=== PATIENT | female | born 1980 | race Caucasian/White ===

== ENCOUNTER 2018-09-16 09:07 | Observation (INO) | payer OTHER ==
[~2018-09-16] VITALS: Ht 162.6 cm; Wt 82.1 kg
--- NOTE | 2018-09-16 09:22 | NUR ---
PATIENT IMMEDIATELY TO ROOM 13 FOR BEDSIDE TRIAGE AND PHYSICIAN AT BEDSIDE FOR EVAL
[2018-09-16 09:55] LABS: HEMATOCRIT 43.6 % (37.0-47.0); HEMOGLOBIN 14.5 g/dl (12.0-16.0); IMMATURE GRANULOCYTES 0.3 % (0.0-5.0); MEAN CELL VOLUME 90.6 fL CALC (80.0-100.0); MEAN CORPUSCULAR HGB 30.1 pG CALC (26.0-32.0); MEAN CORPUSCULAR HGB CONC 33.3 g/L CALC (32.0-36.0); NEUT# 6.24 thou/uL (2.00-7.15); RED BLOOD COUNT 4.81 mill/uL (4.20-5.60); RED CELL DISTRI WIDTH 12.7 % (11.5-15.5)
[2018-09-16] MEDS ORDERED: SINGULAIR10 MG PO (10:02)
[2018-09-16] MEDS ORDERED: ALBUTEROL SUL0.083 % IN (10:04)
[2018-09-16] MEDS ORDERED: HYDROCHLOROT12.5 M1 PO (10:05)
[2018-09-16] MEDS ORDERED: TIZANIDINE HCL2 MG PO (10:06)
[2018-09-16] MEDS ORDERED: CYCLOBENZAPR10 MG PO (10:07)
[2018-09-16] MEDS ORDERED: TOPIRAMATE100 MG PO (10:08)
[2018-09-16] MEDS ORDERED: RANITIDINE150 M1 PO (10:08)
[2018-09-16] MEDS ORDERED: NORTRIPTYLIN25 MG PO (10:08)
[2018-09-16] MEDS ORDERED: AVIANE PO (10:09)
[2018-09-16] MEDS ORDERED: ATENOLOL25 MG PO (10:09)
[2018-09-16 10:10] LABS: ANION GAP 16 (6-22 (CALC)); BUN 16 mg/dL (7-17); BUN/CREATININE RATIO 18 (12-20 (CALC)); CARBON DIOXIDE 23 mmol/l (22-30); CHLORIDE 107 mmol/l (95-108); CREATININE 0.9 mg/dL (0.5-1.0); GFR > 60 ML/MIN (>=60 (CALC)); GFR FOR AFR.AMER. > 60 ML/MIN (>=60 (CALC)); POTASSIUM 4.7 mmol/l (3.5-5.1); SODIUM 141 mmol/l (137-146)
--- NOTE | 2018-09-16 11:02 | NUR ---
PT UPDATED ON KNOWN RESULTS, STATES THAT SHE STILL FEELS PRESSURE IN CHEST.
--- NOTE | 2018-09-16 12:40 | NUR ---
PT AWARE OF PENDING ADMISSION TO M/S, REPORT TO FLOOR SOON.
--- NOTE | 2018-09-16 13:30 | NUR ---
PT TRANSPORTED TO [facility] VIA STRETCHER ACCOMPIANED BY PAULINA SARAH. PT AMBULATED FROM STRETCHER TO BED W/ STEADY GAIT. VS DONE. PT A/O X3. PERRLA. SPEECH IS CLEAR. RESP EVEN AND UNLABORED. LUNG SOUNDS CLEAR. TELE IN PLACE. PT STATES ACHING PAIN TO CHEST 5 OUT OF 10 ON PAIN SCALE. RELAXATION TECHNIQUES IN PLACE. PT STATES "THE CHEST PAIN IS DECREASING FROM WHAT IS WAS." BOWEL SOUNDS ACTIVE X4. STRONG RADIAL AND PEDAL PULSES. #22 LFA SL. FLUSHED AND PATENT. SITE APPEARS HEALTHY. SKIN INTACT. PT DENIES ANY FURTHER NEEDS. POC DISCUSSED. SAFETY PRECAUTIONS IN PLACE. CALL LIGHT IN REACH. WILL CONTINUE TO MONITOR.
--- NOTE | 2018-09-16 13:33 | NUR ---
REPORT PROVIDED TO ALEX ARCHULETA TAKEN TO MED/SURG WITHOUT INCIDENT.
[2018-09-16 14:31] VITALS: BP 152/78
[2018-09-16 19:05] VITALS: BP 113/71
--- NOTE | 2018-09-16 19:18 | NUR ---
REPORT RECEIVED FROM DAY NURSE. PT IS IN BED IN LOW FOWLERS POSITION, REPORTS FEELING BETTER, DENIES ANY NEEDS AT THIS TIME. CALL LIGHT IS NEXT TO BED AND PT ENCOURAGED TO CALL ANY NEEDS ARISE.
--- NOTE | 2018-09-16 20:38 | NUR ---
PT ASSESSED AND MEDICATED ORDERS PROVIDE. PT C/O MILD HEADACHE/MEDICATED. PT REPORTS NORMAL STOOL THIS DAY, SKIN APPEARS TO BE INTACT, LUNG SOUNDS ARE CLEAR, ABD SOFT NON-TENDER W/ACTIVE BOWEL SOUNDS. DENIES ANY OTHER NEEDS AT THIS TIME. ENCOURAGED PT TO CALL NEEDS ARISE. CALL LIGHT IS AT SIDE.
[2018-09-17 00:15] VITALS: BP 133/65
--- NOTE | 2018-09-17 03:15 | NUR ---
PT SLEEPING SOUNDLY AT THIS TIME. NO S/O DISTRESS NOTED, CALL LIGHT AT BEDSIDE.
[2018-09-17 04:30] VITALS: BP 98/66
--- NOTE | 2018-09-17 05:54 | NUR ---
PT MEDICATED FOR HEADACHE 12/29. PT IS TALKING AND WALKING AROUND THE ROOM. PT ASSISTED BACK TO BED PRIOR TO MEDICATING. PT C/O PAIN AT IV SITE/SITE SLIGHTLY REDDENED, FLUSHES, BUT APPEARS MILDLY RED AND PT WANTS IT TAKEN OUT. WILL OBTAIN NEW IV ACCESS.
--- NOTE | 2018-09-17 06:34 | NUR ---
ATTEMPTS WERE MADE X2 FOR IV ACCESS/UNABLE, WILL CALL FOR ASSISTANCE.
--- NOTE | 2018-09-17 07:15 | NUR ---
PT REPORT RECIEVED FROM PAULINA WOODS. PT LYING IN BED. NO S/S OF DISTRESS. CALL LIGHT IN REACH. WILL CONTINUE TO MONITOR.
[2018-09-17 08:25] VITALS: BP 121/73
--- NOTE | 2018-09-17 08:25 | NUR ---
PT A/O X3. SPEECH IS CLEAR. RESP EVEN AND UNLABORED. LUNG SOUNDS CLEAR. TELE IN PLACE. BOWEL SOUNDS ACTIVE X4. STRONG RADIAL AND PEDAL PULSES. NO IV SITE AT THIS TIME. SKIN INTACT. PT DENIES ANY PAIN OR NEEDS. POC DISCUSSED. SAFETY PRECAUTIONS IN PLACE. CALL LIGHT IN REACH. WILL CONTINUE TO MONITOR.
[2018-09-17 10:41] VITALS: BP 105/73
--- NOTE | 2018-09-17 12:06 | NUR ---
PT C/O HEADACHE. MEDICATED W/ 50 MG ULTRAM PO. LIGHTS DIMMIED, ROOM DOOR CLOSED FOR COMFORT. PT DENIES ANY FURTHER NEEDS. CALL LIGHT IN REACH. WILL CONTINUE TO MONITOR.
[2018-09-17 12:07] LABS: CHOLESTEROL HDL RATIO 3.6 (<4.4 (CALC))
[2018-09-17] MEDS ORDERED: PROTONIX40 M2 PO (14:33)
--- NOTE | 2018-09-17 14:56 | NUR ---
D/C INSTRUCTIONS DISCUSSED W/ PT. PT STATES UNDERSTANDING. TELE REMOVED. PT GETTING DRESSED AT THIS TIME.
--- NOTE | 2018-09-17 15:26 | NUR ---
Discharge instructions given. Patient verbalizes understanding of same. Discharged in stable condition via Wheelchair to Home with family. All belongings sent with pt.
== END 2018-09-17 15:10 | disposition home or self-care (01) | DRG 313 ==
LOC: ED 09:07 → ED-I 09:48 → ED 09:48 → ED-I 10:57 → ED 11:27 → MS2 11:28
PROVIDERS: Family Medicine; Nurse Practitioner Family; ADMIT Internal Medicine Nephrology; ATTEND Internal Medicine Nephrology
DX: R07.9 Chest pain, unspecified (principal); I10 Essential (primary) hypertension; K21.9 Gastro-esophageal reflux disease without esophagitis; M62.838 Other muscle spasm; Z87.11 Personal history of peptic ulcer disease
CPT/HCPCS: G0378

== ENCOUNTER 2018-10-10 23:52 | Emergency (ER) | payer OTHER ==
[~2018-10-10] VITALS: Ht 162.6 cm; Wt 82.7 kg
[~2018-10-10 23:52] MED LIST: ALBUTEROL SUL0.083 % IN; ATENOLOL25 MG PO; AVIANE PO; CYCLOBENZAPR10 MG PO; HYDROCHLOROT12.5 M1 PO; NORTRIPTYLIN25 MG PO; PROTONIX40 M2 PO; RANITIDINE150 M1 PO; SINGULAIR10 MG PO; TIZANIDINE HCL2 MG PO; TOPIRAMATE100 MG PO
[2018-10-11 00:34] LABS: HEMATOCRIT 40.1 % (37.0-47.0); HEMOGLOBIN 13.6 g/dl (12.0-16.0); IMMATURE GRANULOCYTES 0.1 % (0.0-5.0); MEAN CELL VOLUME 91.6 fL CALC (80.0-100.0); MEAN CORPUSCULAR HGB 31.1 pG CALC (26.0-32.0); MEAN CORPUSCULAR HGB CONC 33.9 g/L CALC (32.0-36.0); NEUT# 4.59 thou/uL (2.00-7.15); RED BLOOD COUNT 4.38 mill/uL (4.20-5.60); RED CELL DISTRI WIDTH 13.2 % (11.5-15.5)
[2018-10-11 01:01] LABS: ALBUMIN 4.3 g/dL (3.2-5.0); ALKALINE PHOSPHATASE 52 u/l (38-126); ANION GAP 12 (6-22 (CALC)); BILIRUBIN, TOTAL 0.4 mg/dL (0.0-1.4); BUN 15 mg/dL (7-17); BUN/CREATININE RATIO 18 (12-20 (CALC)); CARBON DIOXIDE 26 mmol/l (22-30); CHLORIDE 107 mmol/l (95-108); CREATININE 0.8 mg/dL (0.5-1.0); GFR > 60 ML/MIN (>=60 (CALC)); GFR FOR AFR.AMER. > 60 ML/MIN (>=60 (CALC)); POTASSIUM 4.4 mmol/l (3.5-5.1); SGOT/AST 19 u/l (14-36); SODIUM 141 mmol/l (137-146); TOTAL PROTEIN 6.8 g/dL (6.3-8.2)
[2018-10-11] MEDS ORDERED: FIORICET PO (02:22)
[2018-10-11] MEDS ORDERED: ATENOLOL25 MG PO (02:22)
[2018-10-11 02:28] VITALS: BP 127/83
== END 2018-10-11 02:30 | disposition home or self-care (01) | DRG 103 ==
LOC: ED 23:52
PROVIDERS: Emergency Medicine
DX: G43.909 Migraine, unspecified, not intractable, without status migrainosus (principal); I10 Essential (primary) hypertension; T46.5X6A Underdosing of other antihypertensive drugs, initial encounter; Z91.128 Patient's intentional underdosing of medication regimen for other reason

== ENCOUNTER 2020-10-31 21:11 | Emergency (ER) | payer OTHER ==
[~2020-10-31 21:11] MED LIST changes: +FIORICET PO
[2020-10-31] MEDS ORDERED: ACULAR0.5 % OD (23:14)
[2020-10-31] MEDS ORDERED: MEDDOSEPAK PO (23:14)
[2020-10-31 23:40] VITALS: BP 166/94
== END 2020-10-31 23:40 | disposition home or self-care (01) | DRG 125 ==
LOC: ED 21:11
DX: H10.11 Acute atopic conjunctivitis, right eye (principal); I10 Essential (primary) hypertension; J45.909 Unspecified asthma, uncomplicated

== ENCOUNTER 2020-11-18 23:52 | Emergency (ER) | payer OTHER ==
[~2020-11-18] VITALS: Ht 162.6 cm; Wt 81.0 kg
[~2020-11-18 23:52] MED LIST changes: +ACULAR0.5 % OD; +MEDDOSEPAK PO
[2020-11-19 02:47] LABS: HEMOGLOBIN 13.9 g/dl (12.0-16.0); IMMATURE GRANULOCYTES 0.1 % (0.0-5.0); MEAN CELL VOLUME 95.7 fL CALC (80.0-100.0); MEAN CORPUSCULAR HGB 31.7 pG CALC (26.0-32.0); MEAN CORPUSCULAR HGB CONC 33.1 g/dL CAL (32.0-36.0); NEUT# 8.52 thou/uL (2.00-7.15); RED BLOOD COUNT 4.39 mill/uL (4.20-5.60); RED CELL DISTRI WIDTH 12.5 % (11.5-15.5)
[2020-11-19 03:02] LABS: ALBUMIN 4.3 g/dL (3.2-5.0); ALKALINE PHOSPHATASE 46 u/l (38-126); AMYLASE 57 u/l (30-110); ANION GAP 10 (6-22 (CALC)); BILIRUBIN, TOTAL 0.3 mg/dL (0.0-1.4); BUN 9 mg/dL (7-17); BUN/CREATININE RATIO 10 (12-20 (CALC)); CARBON DIOXIDE 29 mmol/l (22-30); CHLORIDE 102 mmol/l (95-108); CREATININE 0.9 mg/dL (0.5-1.0); GFR > 60 ML/MIN (>=60 (CALC)); GFR FOR AFR.AMER. > 60 ML/MIN (>=60 (CALC)); LIPASE 74 u/l (23-300); POTASSIUM 3.6 mmol/l (3.5-5.1); SGOT/AST 20 u/l (14-36); SODIUM 137 mmol/l (137-146); TOTAL PROTEIN 7.3 g/dL (6.3-8.2)
[2020-11-19 03:03] LABS: D-DIMER 0.29 mg/L (0.19-0.60)
[2020-11-19 03:08] LABS: ACT PARTIAL THROMBO TIME 23.2 SECONDS (20.0-32.5); INTERNATIONAL NORMALIZED RATIO 0.9 RATIO (0.7-1.3); PROTHROMBIN TIME 9.9 SECONDS (9.0-12.5)
[2020-11-19 03:12] LABS: MYOGLOBIN 45 ng/mL (0 - 62)
[2020-11-19] MEDS ORDERED: TORADOL PO (03:52)
[2020-11-19 04:20] VITALS: BP 151/113
== END 2020-11-19 04:28 | disposition home or self-care (01) | DRG 206 ==
LOC: ED 23:52
PROVIDERS: Family Medicine
DX: M94.0 Chondrocostal junction syndrome [Tietze] (principal); I10 Essential (primary) hypertension; J45.909 Unspecified asthma, uncomplicated